=== PATIENT | female | born 1995 | race Caucasian/White ===

== ENCOUNTER 2020-02-07 15:00 | Inpatient (IN) | payer OTHER ==
[2020-02-07] MEDS ORDERED: ACETAMINOPHEN 1000 MG/100 ML VIAL (NON FORMULARY) IVPB PRN (16:52)
[2020-02-07] MEDS ORDERED: MISOPROSTOL 200 MCG TABLET PV SCH (17:00)
[2020-02-07 17:13] LABS: BASO % 0.2 % (0-2.0); EOS % 0.5 % (0-4.5); HEMATOCRIT 34.1 % (32.4-45.2); HEMOGLOBIN 11.9 GM/dL (10.7-15.3); LYMPH % 9.3 % (8-40); MCH 31.6 pg (25.7-33.7); MCHC 34.8 g/dl (32.0-36.0); MEAN CELL VOLUME 90.9 fl (80-96); MEAN PLT VOLUME 9.2 fl (7.5-11.1); MONO % 5.6 % (3.8-10.2); NEUT % 84.4 % (42.8-82.8); PLATELET COUNT 187 K/MM3 (134-434); RBC 3.75 M/mm3 (3.60-5.2); RDW 12.2 % (11.6-15.6); WHITE BLOOD COUNT 8.4 K/mm3 (4.0-10.0)
[2020-02-07 17:19] LABS: INR 0.97 (0.83-1.09); PROTHROMBIN TIME (PATIENT) 11.8 SEC (9.7-13.0)
[2020-02-07 17:28] LABS: POTASSIUM 3.9 mmol/L (3.5-5.1)
[2020-02-07 17:30] LABS: CALCIUM 9.3 mg/dL (8.5-10.1)
[2020-02-07] MEDS: MISOPROSTOL 100 MCG TABLET PV SCH ×2 (17:30→21:45)
[2020-02-07 17:31] LABS: ALBUMIN 3.1 g/dl (3.4-5.0); BLOOD UREA NITROGEN 7.4 mg/dL (7-18)
[2020-02-07 17:35] LABS: BILIRUBIN,TOTAL 0.4 mg/dL (0.2-1)
[2020-02-07] MEDS ORDERED: MISOPROSTOL 100 MCG TABLET PV SCH ×2 (17:35→22:00)
[2020-02-07 17:38] LABS: CREATININE 0.6 mg/dL (0.55-1.3)
[2020-02-07 18:06] VITALS: BMI 22.9
[2020-02-07 19:03] LABS: COCAINE, UR NEGATIVE ng/ml (CUTOFF=300); METHADONE, UR NEGATIVE ng/ml (CUTOFF=300); OPIATES, URI NEGATIVE ng/ml (CUTOFF=300); URINE BARBITURATES NEGATIVE ng/ml (CUTOFF=200); URINE BENZODIAZEPINES NEGATIVE ng/ml (CUTOFF=200)
[2020-02-07 19:04] LABS: PHENCYCLIDINE,URINE NEGATIVE ng/ml (CUTOFF=25)
[2020-02-07 19:06] LABS: URINE AMPHETAMINES NEGATIVE ng/ml (CUTOFF=500)
[2020-02-07] MEDS ORDERED: MISOPROSTOL 25 MCG TABLET (COMPOUNDED BY PHARMACY) PO ONE (22:00)
[2020-02-07] MEDS ORDERED: PROMETHAZINE HCL 25 MG/1 ML VIAL IVPUSH ONE (22:01)
[2020-02-07] MEDS ORDERED: BUTORPHANOL TARTRATE 1 MG/ML VIAL IVPB ONE (22:01)
[2020-02-07] MEDS ORDERED: PROMETHAZINE HCL 25 MG/1 ML VIAL ONE (22:08)
[2020-02-07] MEDS ORDERED: BUTORPHANOL TARTRATE 1 MG/ML VIAL ONE ×2 (22:08)
[2020-02-08] MEDS: MISOPROSTOL 100 MCG TABLET PV SCH ×2 (00:15→19:53)
[2020-02-08] MEDS ORDERED: MISOPROSTOL 100 MCG TABLET ONE (03:35)
[2020-02-08] MEDS ORDERED: PROMETHAZINE HCL 25 MG/1 ML VIAL ONE ×3 (03:55→09:53)
[2020-02-08] MEDS ORDERED: OXYTOCIN 30 UNITS in 0.9% NS 30 UNIT/500 ML INFUS.BAG IVPB ONE (03:55)
[2020-02-08] MEDS ORDERED: BUTORPHANOL TARTRATE 1 MG/ML VIAL ONE ×2 (03:55)
[2020-02-08] MEDS ORDERED: BUTORPHANOL TARTRATE 1 MG/ML VIAL IVPB ONE ×2 (03:59→09:21)
[2020-02-08] MEDS ORDERED: PROMETHAZINE HCL 25 MG/1 ML VIAL IVPUSH ONE ×2 (03:59→09:21)
[2020-02-08] MEDS ORDERED: OXYTOCIN 30 UNITS in 0.9% NS 30 UNIT/500 ML INFUS.BAG IVPB SCH (04:00)
[2020-02-08] MEDS ORDERED: FENTANYL/BUPIVACAINE/NS/PF - PCEA - 50 ML DISP.SYRIN EP ONE ×2 (06:55→07:14)
[2020-02-08] MEDS ORDERED: PCA PUMP NR ONE (07:14)
[2020-02-08] MEDS ORDERED: NALOXONE HCL 0.4 MG/ML VIAL IVPUSH PRN (07:16)
[2020-02-08] MEDS ORDERED: BUPIVACAINE HCL/PF 0.25% (2.5MG/ML) 10 ML VIAL ONE (07:18)
[2020-02-08] MEDS: ELECTROLYTE-148 SOLN 1,000 ML IV SCH ×2 (07:30)
[2020-02-08] MEDS ORDERED: FENTANYL/BUPIVACAINE/NS/PF - PCEA - 50 ML DISP.SYRIN EP SCH (07:30)
[2020-02-08] MEDS ORDERED: BUTORPHANOL TARTRATE 2 MG/ML VIAL ONE ×2 (07:31→09:53)
[2020-02-08] MEDS ORDERED: HYDROmorphone HCl 2 MG/ML VIAL IVPB ONE (07:39)
[2020-02-08] MEDS ORDERED: HYDROmorphone *PCA* 10MG/50ML DISP.SYRIN PCA SCH (07:45)
[2020-02-08] MEDS ORDERED: HYDROmorphone *PCA* 10MG/50ML DISP.SYRIN ONE (08:15)
[2020-02-08] MEDS ORDERED: OXYTOCIN 20 UNITS in 0.9% NS 20 UNIT/1,000 ML INFUS.BAG IV ONE (11:43)
[2020-02-08] MEDS ORDERED: BISACODYL 10 MG SUPP.RECT RC PRN ×2 (12:29→12:31)
[2020-02-08] MEDS ORDERED: ACETAMINOPHEN 325 MG TABLET (FP) PO PRN ×2 (12:29→12:31)
[2020-02-08] MEDS ORDERED: BENZOCAINE 28 GM HEMORRHOIDAL OINTMENT TP PRN ×2 (12:29→12:31)
[2020-02-08] MEDS ORDERED: METHYLERGONOVINE MALEATE 0.2 MG/1 ML AMP IM PRN ×2 (12:29→12:31)
[2020-02-08] MEDS ORDERED: BENZOCAINE 20% 57 GM BOTTLE TP PRN ×2 (12:29→12:31)
[2020-02-08] MEDS ORDERED: WITCH HAZEL 50% (TUCKS) 40 PAD/JAR PAD TP PRN ×2 (12:29→12:31)
[2020-02-08] MEDS ORDERED: IBUPROFEN 800 MG/8 ML IJ IVPB PRN (12:30)
[2020-02-08] MEDS ORDERED: OXYTOCIN 20 UNITS in 0.9% NS 1,000 ML IV SCH (12:30)
[2020-02-08] MEDS ORDERED: IBUPROFEN 600 MG TABLET (FP) PO PRN (12:31)
[2020-02-08] MEDS ORDERED: OXYTOCIN 20 UNITS in 0.9% NS 20 UNIT/1,000 ML INFUS.BAG IV SCH (12:45)
[2020-02-08] MEDS ORDERED: ACETAMINOPHEN 650 MG/20.3 ML ORAL SOLUTION (CUPS) PO PRN (12:52)
[2020-02-08] MEDS: IBUPROFEN 100 MG/5 ML UNIT DOSE CUPS PO PRN ×2 (13:29→21:40)
[2020-02-09 06:34] VITALS: TEMP 97.8
[2020-02-09 07:46] VITALS: BP 120/82; PULSE 80
[2020-02-09] MEDS ORDERED: SENNOSIDES/DOCUSATE COMBO (SENNA PLUS) TABLET (UD) PO PRN ×2 (22:00)
== END 2020-02-09 08:10 | disposition home or self-care (01) | DRG 560 ==
LOC: JLDR 15:00 → J3W 02-08 14:31
PROVIDERS: ADMIT Obstetrics & Gynecology; ATTEND Obstetrics & Gynecology
PROC: 10907ZC Drainage of Amniotic Fluid, Therapeutic from Products of Conception, Via Natural or Artificial Opening (ICD-10-PCS; 2020-02-07)
PROC: 3E0P7VZ Introduction of Hormone into Female Reproductive, Via Natural or Artificial Opening (ICD-10-PCS; 2020-02-07)
PROC: 10D07Z6 Extraction of Products of Conception, Vacuum, Via Natural or Artificial Opening (ICD-10-PCS; principal; 2020-02-08)
DX: O36.4XX0 Maternal care for intrauterine death, not applicable or unspecified (principal); Z37.1 Single stillbirth; O36.8130 Decreased fetal movements, third trimester, not applicable or unspecified; O69.1XX0 Labor and delivery complicated by cord around neck, with compression, not applicable or unspecified; Z3A.36 36 weeks gestation of pregnancy
CPT/HCPCS: 36415; 59409; 76815; 80053; 80307; 85025; 85362; 85384; 85610; 85730; 86762; 86780; 86850; 86900; 86901; 87340; 87389; 88307-TC; C9803; U0003

== ENCOUNTER 2020-09-11 10:29 | Emergency (ER) | payer OTHER ==
[2020-09-11 10:41] VITALS: BP 115/74; PULSE 94; TEMP 98.1; BMI 23.5
[2020-09-11 13:27] LABS: BASO % 0.3 % (0-2.0); EOS % 0.3 % (0-4.5); HEMOGLOBIN 12.5 GM/dL (10.7-15.3); LYMPH % 12.7 % (8-40); MCH 31.9 pg (25.7-33.7); MCHC 35.7 g/dl (32.0-36.0); MEAN CELL VOLUME 89.2 fl (80-96); MEAN PLT VOLUME 7.4 fl (7.5-11.1); MONO % 3.4 % (3.8-10.2); NEUT % 83.3 % (42.8-82.8); PLATELET COUNT 248 10^3/uL (134-434); RBC 3.93 M/mm3 (3.60-5.2); RDW 13.5 % (11.6-15.6); WHITE BLOOD COUNT 9.2 K/mm3 (4.0-10.0)
[2020-09-11 13:56] LABS: CALCIUM 8.6 mg/dL (8.5-10.1)
[2020-09-11 13:57] LABS: ALBUMIN 3.6 g/dl (3.4-5.0); BLOOD UREA NITROGEN 10.9 mg/dL (7-18)
[2020-09-11 14:00] LABS: CREATININE 0.6 mg/dL (0.55-1.3)
[2020-09-11 14:02] LABS: BILIRUBIN,TOTAL 0.4 mg/dL (0.2-1); TOT PROT 7.4 g/dl (6.4-8.2)
[2020-09-11 15:51] LABS: EPI CELLS 29 /uL (0-25.1); HYALINE CASTS 0 /uL (0-3.1); URINE APPEARANCE CLEAR; URINE BACTERIA 419 /uL (0-1359); URINE BILIRUBIN NEGATIVE (NEGATIVE); URINE COLOR YELLOW; URINE GLUCOSE (UA) NEGATIVE (NEGATIVE); URINE KETONE TRACE (NEGATIVE); URINE LEUK ESTERASE TRACE (NEGATIVE); URINE NITRITE NEGATIVE (NEGATIVE); URINE PROTEIN NEGATIVE (NEGATIVE); URINE RBC 5 /uL (0-23.9); URINE UROBILINOGEN 0.2 mg/dL (0.2-1.0); URINE WBC 15 /uL (0-25.8)
== END 2020-09-11 16:25 | disposition home or self-care (01) ==
LOC: JER 10:29
DX: O26.892 Other specified pregnancy related conditions, second trimester (principal); R42 Dizziness and giddiness; Z3A.16 16 weeks gestation of pregnancy
CPT/HCPCS: 36415; 76801-TC; 80053; 81003; 85025; 87086; 93005; 93010; 99285-25

== ENCOUNTER 2021-01-15 21:30 | Observation (INO) | payer OTHER ==
[~2021-01-15 21:30] MED LIST: ZOLPIDEM TARTRATE 5 MG TABLET PO ONE
[2021-01-15] MEDS: ELECTROLYTE-148 SOLN 500 ML IV SCH (21:45)
[2021-01-15 22:20] LABS: BASO % 0.4 % (0-2.0); EOS % 0.6 % (0-4.5); HEMATOCRIT 30.6 % (32.4-45.2); HEMOGLOBIN 10.4 GM/dL (10.7-15.3); LYMPH % 24.3 % (8-40); MCH 29.4 pg (25.7-33.7); MCHC 34.1 g/dl (32.0-36.0); MEAN CELL VOLUME 86.4 fl (80-96); MEAN PLT VOLUME 8.2 fl (7.5-11.1); MONO % 8.7 % (3.8-10.2); PLATELET COUNT 217 10^3/uL (134-434); RBC 3.54 M/mm3 (3.60-5.2); RDW 13.3 % (11.6-15.6); WHITE BLOOD COUNT 7.3 K/mm3 (4.0-10.0)
[2021-01-15 22:24] LABS: EPI CELLS 4 /uL (0-25.1); HYALINE CASTS 0 /uL (0-3.1); PH,URINE 7.5 (5.0-8.0); URINE APPEARANCE CLEAR; URINE BACTERIA 232 /uL (0-1359); URINE BILIRUBIN NEGATIVE (NEGATIVE); URINE COLOR YELLOW; URINE GLUCOSE (UA) NEGATIVE (NEGATIVE); URINE KETONE NEGATIVE (NEGATIVE); URINE LEUK ESTERASE TRACE (NEGATIVE); URINE NITRITE NEGATIVE (NEGATIVE); URINE PROTEIN NEGATIVE (NEGATIVE); URINE RBC 0 /uL (0-23.9); URINE UROBILINOGEN 0.2 mg/dL (0.2-1.0); URINE WBC 7 /uL (0-25.8)
[2021-01-15] MEDS ORDERED: ELECTROLYTE-148 SOLN 500 ML IV SCH (22:30)
[2021-01-15 22:46] VITALS: BP 131/86; PULSE 102; TEMP 98.2
[2021-01-15] MEDS ORDERED: ZOLPIDEM TARTRATE 5 MG TABLET ONE (23:14)
[2021-01-16] MEDS: ELECTROLYTE-148 SOLN 500 ML IV SCH (01:00)
== END 2021-01-16 09:50 | disposition home or self-care (01) ==
LOC: JDEL 21:30 → JLDR 01-16 05:30
PROVIDERS: ADMIT Specialist; ATTEND Specialist
PROC: 3E0337Z Introduction of Electrolytic and Water Balance Substance into Peripheral Vein, Percutaneous Approach (ICD-10-PCS; principal; 2021-01-16)
DX: O47.03 False labor before 37 completed weeks of gestation, third trimester (principal); Z3A.35 35 weeks gestation of pregnancy; R10.2 Pelvic and perineal pain
CPT/HCPCS: 36415; 59025; 81003; 85025; 87086; G0378

== ENCOUNTER 2021-02-04 17:00 | Inpatient (IN) | payer OTHER ==
[2021-02-04 17:37] VITALS: BMI 27.6
[2021-02-04] MEDS ORDERED: DINOPROSTONE 10 MG VAGINAL SUPPOSITORY VG ONE (17:40)
[2021-02-04] MEDS ORDERED: hydrOXYzine PAMOATE 25 MG CAPSULE (FP) PO ONE (17:40)
[2021-02-05] MEDS ORDERED: OXYTOCIN 30 UNITS in 0.9% NS 30 UNIT/500 ML INFUS.BAG IVPB ONE (07:53)
[2021-02-05] MEDS ORDERED: OXYTOCIN 30 UNITS in 0.9% NS 30 UNIT/500 ML INFUS.BAG IVPB SCH (08:15)
[2021-02-05] MEDS ORDERED: FENTANYL/BUPIVACAINE/NS/PF - PCEA - 50 ML DISP.SYRIN EP ONE (12:12)
[2021-02-05] MEDS ORDERED: PCA PUMP NR ONE (12:13)
[2021-02-05] MEDS ORDERED: FENTANYL/BUPIVACAINE/NS/PF - PCEA - 50 ML DISP.SYRIN EP SCH (12:40)
[2021-02-05] MEDS ORDERED: NALOXONE HCL 0.4 MG/ML VIAL IVPUSH PRN (14:31)
[2021-02-05] MEDS ORDERED: OXYTOCIN 20 UNITS in 0.9% NS 20 UNIT/1,000 ML INFUS.BAG IV ONE (15:22)
[2021-02-05] MEDS ORDERED: LIDOCAINE HCL 1% PRESERVATIVE FREE - 30ML VIAL ONE (15:22)
[2021-02-05] MEDS ORDERED: ACETAMINOPHEN INJECTION 100 ML IVPB ONE (16:59)
[2021-02-05] MEDS ORDERED: BENZOCAINE 28 GM HEMORRHOIDAL OINTMENT TP PRN (17:08)
[2021-02-05] MEDS ORDERED: BISACODYL 10 MG SUPP.RECT RC PRN (17:08)
[2021-02-05] MEDS ORDERED: IBUPROFEN 600 MG TABLET (FP) PO PRN (17:08)
[2021-02-05] MEDS ORDERED: ACETAMINOPHEN 325 MG TABLET (FP) PO PRN (17:08)
[2021-02-05] MEDS ORDERED: METHYLERGONOVINE MALEATE 0.2 MG/1 ML AMP IM PRN (17:08)
[2021-02-05] MEDS ORDERED: WITCH HAZEL 50% (TUCKS) 40 PAD/JAR PAD TP PRN (17:08)
[2021-02-05] MEDS ORDERED: BENZOCAINE 20% 57 GM BOTTLE TP PRN (17:08)
[2021-02-05] MEDS ORDERED: oxyCODONE HCL 5 MG TABLET PO PRN (17:08)
[2021-02-05] MEDS ORDERED: ACETAMINOPHEN 1000 MG/100 ML BAG IVPB ONE (17:09)
[2021-02-05] MEDS ORDERED: OXYTOCIN 20 UNITS in 0.9% NS 20 UNIT/1,000 ML INFUS.BAG IV SCH (17:15)
[2021-02-05] MEDS ORDERED: IBUPROFEN 600 MG TABLET (FP) PO ONE (19:17)
[2021-02-05] MEDS ORDERED: IBUPROFEN 100 MG/5 ML UNIT DOSE CUPS PO PRN (19:23)
[2021-02-06 08:59] LABS: BASO % 0.3 % (0-2.0); EOS % 0.2 % (0-4.5); HEMATOCRIT 29.3 % (32.4-45.2); HEMOGLOBIN 10.3 GM/dL (10.7-15.3); MCH 29.8 pg (25.7-33.7); MEAN CELL VOLUME 85.2 fl (80-96); MEAN PLT VOLUME 7.9 fl (7.5-11.1); NEUT % 78.5 % (42.8-82.8); PLATELET COUNT 203 10^3/uL (134-434); RBC 3.44 M/mm3 (3.60-5.2); RDW 14.2 % (11.6-15.6)
[2021-02-06] MEDS ORDERED: SENNOSIDES/DOCUSATE COMBO (SENNA PLUS) TABLET (UD) PO PRN (22:00)
[2021-02-07 10:35] VITALS: BP 116/72; PULSE 97; TEMP 97.2
== END 2021-02-07 12:00 | disposition home or self-care (01) | DRG 807 ==
LOC: JLDR 17:00 → J3W 02-05 20:52
PROVIDERS: ADMIT Specialist; ATTEND Specialist
PROC: 3E0P7VZ Introduction of Hormone into Female Reproductive, Via Natural or Artificial Opening (ICD-10-PCS; 2021-02-04)
PROC: 10E0XZZ Delivery of Products of Conception, External Approach (ICD-10-PCS; principal; 2021-02-05)
DX: O26.893 Other specified pregnancy related conditions, third trimester (principal); Z37.0 Single live birth; L29.8 Other pruritus; Z3A.37 37 weeks gestation of pregnancy
CPT/HCPCS: 36415; 59409; 85025; 88307-TC; J0131

== ENCOUNTER 2023-05-16 19:00 | Inpatient (IN) | payer OTHER ==
[2023-05-16] MEDS: ELECTROLYTE-148 SOLN 1,000 ML IV SCH (20:15)
[2023-05-16 20:23] VITALS: BMI 26.2
[2023-05-16 20:47] LABS: BASO % 0.4 % (0-2.0); EOS % 0.2 % (0-4.5); HEMATOCRIT 29.3 % (32.4-45.2); LYMPH % 24.3 % (8-40); MCH 29.7 pg (25.7-33.7); MCHC 34.2 g/dl (32.0-36.0); MEAN CELL VOLUME 86.9 fl (80-96); MEAN PLT VOLUME 8.8 fl (7.5-11.1); MONO % 7.9 % (3.8-10.2); NEUT % 67.2 % (42.8-82.8); PLATELET COUNT 199 10^3/uL (134-434); RBC 3.37 M/mm3 (3.60-5.2); RDW 13.7 % (11.6-15.6); WHITE BLOOD COUNT 7.5 K/mm3 (4.0-10.0)
[2023-05-16 20:56] LABS: INR 0.97 (0.83-1.09); PROTHROMBIN TIME (PATIENT) 11.2 SEC (9.7-13.0)
[2023-05-16] MEDS: DINOPROSTONE 10 MG VAGINAL SUPPOSITORY VG ONE (20:57)
[2023-05-16 20:59] LABS: ACTIVATED PTT 25.1 SECONDS (25.2-36.5)
[2023-05-16 21:12] LABS: POTASSIUM 3.9 mmol/L (3.5-5.1)
[2023-05-16 21:13] LABS: CALCIUM 8.8 mg/dL (8.5-10.1)
[2023-05-16 21:14] LABS: BLOOD UREA NITROGEN 13.1 mg/dL (7-18)
[2023-05-16 21:17] LABS: CREATININE 0.8 mg/dL (0.55-1.3)
[2023-05-17] MEDS ORDERED: OXYTOCIN 30 UNITS in 0.9% NS 30 UNIT/500 ML INFUS.BAG IVPB ONE (09:40)
[2023-05-17] MEDS: OXYTOCIN 30 UNITS in 0.9% NS 30 UNIT/500 ML INFUS.BAG IVPB SCH (09:45)
[2023-05-17] MEDS ORDERED: FENTANYL/BUPIVACAINE/NS/PF - PCEA - 50 ML DISP.SYRIN EP ONE (16:27)
[2023-05-17] MEDS ORDERED: PROMETHAZINE HCL 25 MG/1 ML VIAL ONE (17:42)
[2023-05-17] MEDS ORDERED: BUTORPHANOL TARTRATE 2 MG/ML VIAL ONE (17:42)
[2023-05-17] MEDS: BUTORPHANOL TARTRATE 2 MG/ML VIAL IVPB STA (17:45)
[2023-05-17] MEDS: PROMETHAZINE HCL 25 MG/1 ML VIAL IVPB STA (17:45)
[2023-05-17] MEDS: FENTANYL/BUPIVACAINE/NS/PF - PCEA - 50 ML DISP.SYRIN EP SCH (19:03)
[2023-05-17] MEDS ORDERED: LIDOCAINE HCL 1% PRESERVATIVE FREE - 30ML VIAL ONE (19:13)
[2023-05-17] MEDS ORDERED: OXYTOCIN 20 UNITS in 0.9% NS 20 UNIT/1,000 ML INFUS.BAG IV ONE (19:13)
[2023-05-17] MEDS ORDERED: NALOXONE HCL 0.4 MG/ML VIAL IVPUSH PRN (19:16)
[2023-05-17] MEDS ORDERED: BENZOCAINE 28 GM HEMORRHOIDAL OINTMENT TP PRN (19:57)
[2023-05-17] MEDS ORDERED: WITCH HAZEL 50% (TUCKS) 40 PAD/JAR PAD TP PRN (19:57)
[2023-05-17] MEDS ORDERED: BENZOCAINE 20% 57 GM BOTTLE TP PRN (19:57)
[2023-05-17] MEDS ORDERED: oxyCODONE HCL 5 MG TABLET PO PRN (19:57)
[2023-05-17] MEDS ORDERED: ACETAMINOPHEN 325 MG TABLET (FP) PO PRN (19:57)
[2023-05-17] MEDS ORDERED: BISACODYL 10 MG SUPP.RECT RC PRN (19:57)
[2023-05-17] MEDS ORDERED: METHYLERGONOVINE MALEATE 0.2 MG/1 ML AMP IM PRN (19:57)
[2023-05-17] MEDS: OXYTOCIN 20 UNITS in 0.9% NS 20 UNIT/1,000 ML INFUS.BAG IV SCH (20:05)
[2023-05-18] MEDS: IBUPROFEN 600 MG TABLET (FP) PO PRN (00:07)
[2023-05-18 08:29] LABS: BASO % 0.3 % (0-2.0); EOS % 0.2 % (0-4.5); HEMATOCRIT 28.7 % (32.4-45.2); HEMOGLOBIN 9.9 GM/dL (10.7-15.3); LYMPH % 17.5 % (8-40); MCH 30.4 pg (25.7-33.7); MCHC 34.4 g/dl (32.0-36.0); MEAN CELL VOLUME 88.3 fl (80-96); MEAN PLT VOLUME 9.1 fl (7.5-11.1); PLATELET COUNT 184 10^3/uL (134-434); RBC 3.25 M/mm3 (3.60-5.2); RDW 13.3 % (11.6-15.6); WHITE BLOOD COUNT 7.9 K/mm3 (4.0-10.0)
[2023-05-18 13:38] VITALS: RESP 18
[2023-05-18] MEDS ORDERED: SENNOSIDES/DOCUSATE COMBO (SENNA PLUS) TABLET (UD) PO PRN (22:00)
[2023-05-19 10:17] VITALS: BP 105/61; PULSE 79; TEMP 98
== END 2023-05-19 12:15 | disposition home or self-care (01) | DRG 560 ==
LOC: JLDR 19:00 → J3W 05-17 22:25
PROVIDERS: ADMIT Obstetrics & Gynecology; ATTEND Specialist
PROC: 3E0P7VZ Introduction of Hormone into Female Reproductive, Via Natural or Artificial Opening (ICD-10-PCS; 2023-05-16)
PROC: 10E0XZZ Delivery of Products of Conception, External Approach (ICD-10-PCS; principal; 2023-05-17)
PROC: 10907ZC Drainage of Amniotic Fluid, Therapeutic from Products of Conception, Via Natural or Artificial Opening (ICD-10-PCS; 2023-05-17)
DX: O69.1XX0 Labor and delivery complicated by cord around neck, with compression, not applicable or unspecified (principal); Z3A.37 37 weeks gestation of pregnancy; Z37.0 Single live birth
CPT/HCPCS: 36415; 80048; 85025; 85610; 85730; 86780; 86850; 86900; 86901